=== PATIENT | male | born 1970 | race Caucasian/White ===

== ENCOUNTER 2017-09-28 15:51 | Emergency (ER) | payer SELFPAY ==
[~2017-09-28] VITALS: Ht 177.8 cm; Wt 81.8 kg
[2017-09-28 15:52] VITALS: BP 116/91
== END 2017-09-28 16:41 | disposition left against medical advice (07) ==
LOC: EMS 15:53
DX: S61.210A Laceration without foreign body of right index finger without damage to nail, initial encounter (principal); F17.210 Nicotine dependence, cigarettes, uncomplicated; X58.XXXA Exposure to other specified factors, initial encounter; Y93.89 Activity, other specified; Y92.89 Other specified places as the place of occurrence of the external cause; Y99.8 Other external cause status; Z53.21 Procedure and treatment not carried out due to patient leaving prior to being seen by health care provider